=== PATIENT | male | born 1955 | race Caucasian/White ===

== ENCOUNTER 2022-02-09 08:37 | Day surgery (SDC) | payer OTHER ==
[~2022-02-09] VITALS: Ht 175.3 cm; Wt 98.4 kg
[~2022-02-09 08:37] MED LIST: AMLO5 PO; CELE200; MELO7.5
[2022-02-09] MEDS ORDERED: HYDCHL25 (10:06)
[2022-02-09] MEDS ORDERED: LOSA50 (10:06)
== END 2022-02-09 13:01 | disposition home or self-care (01) ==
LOC: ORSCSDS 08:37
PROVIDERS: Internal Medicine Gastroenterology
PROC: 0DBP8ZX Excision of Rectum, Via Natural or Artificial Opening Endoscopic, Diagnostic (ICD-10-PCS; principal; 2022-02-09 11:15)
PROC: 0DBM8ZX Excision of Descending Colon, Via Natural or Artificial Opening Endoscopic, Diagnostic (ICD-10-PCS; principal; 2022-02-09 11:15)
PROC: 0DBN8ZX Excision of Sigmoid Colon, Via Natural or Artificial Opening Endoscopic, Diagnostic (ICD-10-PCS; principal; 2022-02-09 11:15)
PROC: 0DBK8ZX Excision of Ascending Colon, Via Natural or Artificial Opening Endoscopic, Diagnostic (ICD-10-PCS; principal; 2022-02-09 11:15)
PROC: 0DBL8ZX Excision of Transverse Colon, Via Natural or Artificial Opening Endoscopic, Diagnostic (ICD-10-PCS; principal; 2022-02-09 11:15)
DX: Z12.11 Encounter for screening for malignant neoplasm of colon (principal); Z86.010 Personal history of colon polyps; D12.4 Benign neoplasm of descending colon; D12.2 Benign neoplasm of ascending colon; D12.3 Benign neoplasm of transverse colon; D12.5 Benign neoplasm of sigmoid colon; K62.1 Rectal polyp; K57.30 Diverticulosis of large intestine without perforation or abscess without bleeding; K64.4 Residual hemorrhoidal skin tags; F17.210 Nicotine dependence, cigarettes, uncomplicated; I10 Essential (primary) hypertension; J43.9 Emphysema, unspecified; Z79.899 Other long term (current) drug therapy
CPT/HCPCS: 88305; 93005; 93010; J2704; J7120

== ENCOUNTER → 2023-10-02 | Outpatient (CLI) | payer OTHER ==
[~2023-10-02] MED LIST changes: +HYDCHL25; +LOSA50
[2023-10-02 11:54] LABS: BASOPHILS ABSOLUTE AUTO 0.04 K/mm3 (0.00-0.23); BASOPHILS PERCENT AUTO 0 % (0-2); EOSINOPHILS ABSOLUTE AUTO 0.08 K/mm3 (0.00-0.68); EOSINOPHILS PERCENT AUTO 1 % (0-6); Hemoglobin 15.9 g/dL (13.5-17.5); IMMATURE GRAN ABSOLUTE AUTO 0.05 K/mm3 (0.00-0.10); IMMATURE GRAN PERCENT AUTO 1 % (0-1); LYMPHOCYTES ABSOLUTE AUTO 2.03 K/mm3 (0.84-5.20); LYMPHOCYTES PERCENT AUTO 22 % (21-46); MONOCYTES ABSOLUTE AUTO 1.02 K/mm3 (0.16-1.47); MONOCYTES PERCENT AUTO 11 % (4-13); Mean Corpuscular HGB 29.4 pg (26.0-34.0); Mean Corpuscular HGB Conc 33.1 g/dL (31.5-36.5); Mean Corpuscular Volume 89 fL (80-100); Mean Platelet Volume 10.5 fL (9.1-12.4); NEUTROPHILS ABSOLUTE AUTO 6.16 K/mm3 (1.96-9.15); NEUTROPHILS PERCENT AUTO 66 % (41-73); Platelet Count 251 K/mm3 (150-400); RDW Coefficient Variation 12.3 % (11.7-14.2); RDW Standard Deviation 39.8 fL (35.1-46.3); Red Blood Cell Count 5.41 M/mm3 (4.30-5.90); White Blood Cell Count 9.38 K/mm3 (4.00-11.30)
[2023-10-02 12:24] LABS: Albumin, Blood 3.4 g/dL (3.4-5.0); Albumin/Globulin Ratio 0.7 (0.8-1.8); Bilirubin, Total 0.4 mg/dL (0.1-1.0); Bun/Creatinine Ratio 26.2 (12.0-20.0); Calcium, Blood 9.2 mg/dL (8.5-10.1); Creatinine, Blood 0.88 mg/dL (0.60-1.20); Globulin, Blood 4.6 g/dL (2.2-4.0); Potassium, Blood 3.8 mmol/L (3.5-5.5)
== END | disposition home or self-care (01) ==
LOC: LAB 10:45 → LAB SHORT 10:45
PROVIDERS: Family Medicine
DX: R42 Dizziness and giddiness (principal)
CPT/HCPCS: 80053; 85025

== ENCOUNTER → 2024-02-28 | Outpatient (CLI) | payer OTHER ==
[2024-02-28 12:35] LABS: Microalb/Creat Ratio UR, Rand 84.507 mg/g (0.000-30.000)
== END | disposition home or self-care (01) ==
LOC: LAB SHORT 11:01 → LAB 11:01
PROVIDERS: Family Medicine
DX: I10 Essential (primary) hypertension (principal)
CPT/HCPCS: 82043; 82570